=== PATIENT | female | born 1955 | race Caucasian/White ===

== ENCOUNTER 2018-03-13 14:53 | Inpatient (IN) | payer OTHER ==
[~2018-03-13] VITALS: Ht 165.1 cm; Wt 73.5 kg
[2018-03-13] MEDS ORDERED: METO25TA35 PO (15:31)
[2018-03-13] MEDS ORDERED: OMEP20TA62 PO (15:31)
[2018-03-13] MEDS ORDERED: ASPI-496 PO (15:31)
[2018-03-13] MEDS ORDERED: SIMV40TA3 PO (15:31)
[2018-03-13] MEDS: INSULIN LISPRO 100 UNITS/ML, PEN SQ-INSULIN SCH ×2 (16:30→21:35)
[2018-03-13] MEDS ORDERED: ENALAPRILAT 1.25 MG/ML, 2ML IVPush PRN (16:30)
[2018-03-13] MEDS ORDERED: ONDANSETRON 2MG/ML, 2ML IVPush PRN (16:30)
[2018-03-13 16:39] VITALS: BP 150/83
[2018-03-13 16:42] VITALS: BP 150/83
[2018-03-13] MEDS: SODIUM CHLORIDE 0.9% 1,000 ML IV SCH (17:46)
[2018-03-13 17:48] LABS: HEMOGLOBIN A1C 5.4 % (4.2-6.3)
[2018-03-13 20:47] VITALS: BP 114/66
[2018-03-14 03:00] VITALS: BP 101/66
[2018-03-14] MEDS: SODIUM CHLORIDE 0.9% 1,000 ML IV SCH ×2 (04:08→17:21)
[2018-03-14 04:42] LABS: MEAN CORPUSCULAR HEMOGLOBIN 32.8 pg (27.0-34.8); MEAN CORPUSCULAR HGB CONC 35.1 g/dL (32.4-35.8); MEAN CORPUSCULAR VOLUME 93.4 fL (80-100); MEAN PLATELET VOLUME 8.1 fL (7.4-10.4); PLATELET COUNT 380 x10^3/uL (130-400); RED CELL DISTRIBUTION WIDTH 17.3 % (9.6-15.2)
[2018-03-14 04:46] LABS: ALANINE AMINOTRANSFERASE 93 U/L (12-78); ANION GAP 10 mmol/L (5-15); CALCIUM 8.2 mg/dL (8.5-10.1); CHLORIDE 107 mmol/L (98-107)
[2018-03-14 04:47] LABS: CREATININE 0.64 mg/dL (0.55-1.02)
[2018-03-14 04:48] LABS: ALKALINE PHOSPHATASE 654 U/L (45-117)
[2018-03-14 05:12] LABS: MD YES; TOTAL PROTEIN 5.3 g/dL (6.4-8.2)
[2018-03-14 05:13] LABS: BILIRUBIN,TOTAL 23.2 mg/dL (0.2-1.0)
[2018-03-14 05:14] LABS: <PLATELET ESTIMATE> ADEQUATE; <PLT MORPHOLOGY> NORMAL PLT MORPH; <RBC MORPHOLOGY> NORMAL; EOS% (MANUAL) 3 % (1-7); LYMPH#(MANUAL) 1.39 x10^3/uL (1-3.4); LYMPHS% (MANUAL) 14 % (22-44); METAMYELOCYTES% (MANUAL) 1 % (0-1); MONOS% (MANUAL) 5 % (2-9); SEG#(MANUAL) 7.62 x10^3/uL (1.8-6.8); SEGS% (MANUAL) 77 % (42-75)
[2018-03-14 07:06] VITALS: BP 98/61
[2018-03-14] MEDS: INSULIN LISPRO 100 UNITS/ML, PEN SQ-INSULIN SCH ×4 (08:00→21:00)
[2018-03-14 12:46] VITALS: BP 113/70
[2018-03-14] MEDS ORDERED: FENTANYL PF 100 MCG/2ML IV PRN (14:00)
[2018-03-14] MEDS ORDERED: LABETALOL 5MG/ML, 20ML IV PRN (14:00)
[2018-03-14] MEDS ORDERED: ACETAMINOPHEN 325 MG TABLET PO PRN (14:00)
[2018-03-14] MEDS ORDERED: EPHEDRINE 50 MG/ML, 1ML IVPush PRN (14:00)
[2018-03-14] MEDS ORDERED: ALBUTEROL SULFATE 2.5 MG/3 ML NPPB PRN (14:00)
[2018-03-14] MEDS ORDERED: METOPROLOL 1 MG/ML, 5ML IV PRN (14:00)
[2018-03-14] MEDS ORDERED: ONDANSETRON 2MG/ML, 2ML IV PRN (14:00)
[2018-03-14] MEDS ORDERED: hydrALAzine 20 MG/ML, 1ML IV PRN (14:00)
[2018-03-14] MEDS ORDERED: OXYcodone 5 MG/5 ML ORAL.SOL UDC PO PRN (14:00)
[2018-03-14] MEDS ORDERED: SUCCINYLCHOLINE 20 MG/ML, 10ML ONE (14:25)
[2018-03-14] MEDS ORDERED: PROPOFOL 10 MG/ML, 20ML ONE (14:25)
[2018-03-14] MEDS ORDERED: DEXAMETHASONE 4 MG/ML, 1ML ONE (14:41)
[2018-03-14] MEDS ORDERED: FENTANYL PF 100 MCG/2ML ONE (15:08)
[2018-03-14] MEDS ORDERED: ONDANSETRON 2MG/ML, 2ML ONE (16:02)
[2018-03-14] MEDS ORDERED: DIPHENHYDRAMINE 50 MG/ML, 1ML IVPush PRN (18:30)
[2018-03-14 19:35] VITALS: BP 118/67
[2018-03-14] MEDS: DIPHENHYDRAMINE 25 MG CAPSULE PO PRN (21:42)
[2018-03-15] MEDS: SODIUM CHLORIDE 0.9% 1,000 ML IV SCH ×2 (02:49→12:19)
[2018-03-15 02:53] VITALS: BP 101/64
[2018-03-15 04:48] LABS: MEAN CORPUSCULAR HEMOGLOBIN 32.7 pg (27.0-34.8); MEAN CORPUSCULAR VOLUME 93.5 fL (80-100); MEAN PLATELET VOLUME 8.2 fL (7.4-10.4); PLATELET COUNT 406 x10^3/uL (130-400); RED BLOOD COUNT 3.28 x10^6/uL (3.82-5.3); RED CELL DISTRIBUTION WIDTH 17.1 % (9.6-15.2)
[2018-03-15 04:56] LABS: INTERNATIONAL NORMALIZED RATIO 1.17 (0.93-1.1)
[2018-03-15 04:58] LABS: ALBUMIN 1.9 g/dL (3.4-5.0); ANION GAP 10 mmol/L (5-15); CALCIUM 8.9 mg/dL (8.5-10.1); CHLORIDE 104 mmol/L (98-107)
[2018-03-15 05:03] LABS: ALANINE AMINOTRANSFERASE 81 U/L (12-78); ALKALINE PHOSPHATASE 586 U/L (45-117)
[2018-03-15 05:05] LABS: CREATININE 0.71 mg/dL (0.55-1.02); TOTAL PROTEIN 5.4 g/dL (6.4-8.2)
[2018-03-15 05:06] LABS: BILIRUBIN,TOTAL 23.1 mg/dL (0.2-1.0); MD YES
[2018-03-15 05:08] LABS: LYMPHS% (MANUAL) 8 % (22-44); MONOS#(MANUAL) 0.15 x10^3/uL (0.3-2.7); MONOS% (MANUAL) 2 % (2-9); SEG#(MANUAL) 6.75 x10^3/uL (1.8-6.8); SEGS% (MANUAL) 90 % (42-75)
[2018-03-15 05:09] LABS: ANISOCYTOSIS 1+
[2018-03-15 05:10] LABS: <PLATELET ESTIMATE> ADEQUATE; <PLT MORPHOLOGY> NORMAL PLT MORPH
[2018-03-15 07:01] VITALS: BP_SYST 0; BP_SYST 100; BP_DIAS 65
[2018-03-15] MEDS: INSULIN LISPRO 100 UNITS/ML, PEN SQ-INSULIN SCH ×4 (07:36→21:00)
[2018-03-15] MEDS ORDERED: LIDOCAINE-MPF 2%, 2ML ONE (10:45)
[2018-03-15] MEDS ORDERED: FENTANYL PF 100 MCG/2ML ONE (10:53)
[2018-03-15] MEDS ORDERED: MIDAZOLAM 1 MG/ML, 5ML ONE ×2 (10:53)
[2018-03-15] MEDS ORDERED: FLUMAZENIL 0.1 MG/1 ML, 5ML ONE (10:54)
[2018-03-15] MEDS ORDERED: NALOXONE 1 MG/ML, 2ML ONE (10:54)
[2018-03-15] MEDS ORDERED: CEFAZOLIN PMX 1GM/50ML 50 ML ONE (11:11)
[2018-03-15] MEDS ORDERED: VISIPAQUE 270 MG/ML, 50ML BOTTLE ONE (12:11)
[2018-03-15 12:15] VITALS: BP 113/66
[2018-03-15] MEDS ORDERED: ONDANSETRON ODT 4 MG ONE (12:15)
[2018-03-15] MEDS ORDERED: ONDANSETRON ODT 4 MG PO PRN (12:30)
[2018-03-15] MEDS: morphine SULFATE 10 MG/ML, 1ML IVPush PRN ×3 (12:32→19:39)
[2018-03-15] MEDS ORDERED: OMNIPAQUE 350 MG/ML, 100ML BOTTLE ONE (18:33)
[2018-03-15 20:21] VITALS: BP 98/61
[2018-03-16] MEDS: DIPHENHYDRAMINE 25 MG CAPSULE PO PRN (01:44)
[2018-03-16] MEDS: SODIUM CHLORIDE 0.9% 1,000 ML IV SCH ×2 (03:17→11:45)
[2018-03-16 03:33] VITALS: BP 96/59
[2018-03-16 04:43] LABS: ALANINE AMINOTRANSFERASE 98 U/L (12-78); ALBUMIN 1.9 g/dL (3.4-5.0); ANION GAP 6 mmol/L (5-15); CALCIUM 8.6 mg/dL (8.5-10.1); CHLORIDE 106 mmol/L (98-107); CREATININE 0.67 mg/dL (0.55-1.02)
[2018-03-16 04:45] LABS: ALKALINE PHOSPHATASE 526 U/L (45-117); TOTAL PROTEIN 5.2 g/dL (6.4-8.2)
[2018-03-16 04:55] LABS: BILIRUBIN,TOTAL 16.7 mg/dL (0.2-1.0)
[2018-03-16] MEDS: INSULIN LISPRO 100 UNITS/ML, PEN SQ-INSULIN SCH ×2 (07:09→11:45)
[2018-03-16 08:25] VITALS: BP 107/66
[2018-03-16] MEDS ORDERED: DIPH25CA61 PO (12:11)
== END 2018-03-16 14:38 | disposition home or self-care (01) | DRG 439 ==
LOC: ED 15:29 → EDIP 15:30 → ED 15:38 → 3NW 16:35
PROVIDERS: ADMIT Internal Medicine; ATTEND Internal Medicine
PROC: 0FJB8ZZ Inspection of Hepatobiliary Duct, Via Natural or Artificial Opening Endoscopic (ICD-10-PCS; 2018-03-14 16:30)
PROC: 0F9930Z Drainage of Common Bile Duct with Drainage Device, Percutaneous Approach (ICD-10-PCS; principal; 2018-03-15)
DX: K86.9 Disease of pancreas, unspecified (principal); E87.1 Hypo-osmolality and hyponatremia; E11.9 Type 2 diabetes mellitus without complications; E78.5 Hyperlipidemia, unspecified; Z53.8 Procedure and treatment not carried out for other reasons; E86.1 Hypovolemia; I10 Essential (primary) hypertension; K76.89 Other specified diseases of liver; Z66 Do not resuscitate; Z79.4 Long term (current) use of insulin; Z80.0 Family history of malignant neoplasm of digestive organs; Z87.891 Personal history of nicotine dependence
CPT/HCPCS: 36415; 47534; 74170; 74328; 80053; 82962; 83036; 85025; 85610; 85730; 86301; 88172; 88173; 88307; 93005; 99156; 99157; 99285; J0690; J1100; J2250; J2405; J2704; J3010; J3490; Q0162; Q9966; Q9967; C1729; C1751; C1769; C1894; J0330; J1815; J2270; J2310; J7030; Q0163

== ENCOUNTER → 2018-04-03 | Outpatient (CLI) | payer OTHER ==
[~2018-04-03] MED LIST: ASPI-496 PO; DEXAMETHASONE 4 MG/ML, 1ML ONE; DIPH25CA61 PO; FENTANYL PF 100 MCG/2ML ONE; METO25TA35 PO; OMEP20TA62 PO; ONDANSETRON 2MG/ML, 2ML ONE; PROPOFOL 10 MG/ML, 20ML ONE; SIMV40TA3 PO; SUCCINYLCHOLINE 20 MG/ML, 10ML ONE
== END | disposition home or self-care (01) ==
LOC: PETCFH 12:18
PROVIDERS: ATTEND Surgery
DX: K86.9 Disease of pancreas, unspecified (principal); R91.8 Other nonspecific abnormal finding of lung field; K80.20 Calculus of gallbladder without cholecystitis without obstruction; J90 Pleural effusion, not elsewhere classified; C25.9 Malignant neoplasm of pancreas, unspecified
CPT/HCPCS: 78815; A9552; J1100; J2405; J2704; J3010; J0330